=== PATIENT | female | born 2000 | race Two or more races ===

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

== ENCOUNTER 2021-06-27 16:41 | Outpatient (REF) | payer OTHER, SELFPAY ==
[2021-06-27 18:53] LABS: Influenza A PCR NEGATIVE (Negative); Influenza B PCR NEGATIVE (Negative); Resp Syncy Virus RNA Qual PCR NEGATIVE (Negative); SARS COV2 PCR INHOUSE NEGATIVE (Negative)
== END 2021-06-27 16:42 | disposition home or self-care (01) ==
LOC: HO.LAB 16:41
PROVIDERS: Visit Provider Pediatrics
DX: Z20.822 Contact with and (suspected) exposure to COVID-19 (principal)
CPT/HCPCS: 0241U; 36415

== ENCOUNTER → 2023-06-28 15:01 | Outpatient (BNVA) | payer OTHER, SELFPAY | PROVIDERS: PCP Physician Assistant; Visit Provider Physician Assistant Medical | DX: S40.871A Other superficial bite of right upper arm, initial encounter (principal); W50.3XXA Accidental bite by another person, initial encounter | CPT/HCPCS: 99203 ==

== ENCOUNTER 2023-10-29 11:40 | Outpatient (AMB) | payer OTHER, SELFPAY ==
--- NOTE | 2023-10-29 11:58 | AM.OFFWIN_ITS ---
Intake Vital Signs 10/29/23 12:03 Height 5 ft 3 in Weight 121 lb BMI 21.4 BP 120/76 Blood Pressure Location Rt brachial Position Sitting Pulse 90 Pulse Source Pulse Oximeter Pulse Oximetry (%) 98 Oxygen Delivery Method Room Air Intake Visit Reasons: EP Stomach pain/Throat currently Intake Note: Patient here for sore throat that has been present for a few days. pt would also like to get a blood preg test to see how far along she is-got off depo in July Patient Tobacco Use Status: Never used Tobacco Allergies No Known Allergies Allergy (Verified 10/29/23 12:03) Do you need a note to return to daycare/school/sports/work: No HPI HPI Comments History of Present Illness Details 23 y/o female patient who presents to [facility] with c/o URI symptoms for few days. She reports Runny nose, sneezing and nasal congestion. Denies fevers, chills, nausea or vomiting. Pt is but she does not know how far along. She has upcoming Appointment with hand inserter operator next week. Pt asking for Blood HCG to determine how far along in . Pt also c/o Abdominal cramping. [facility] Social History Patient Tobacco Use Status: Never used Tobacco Review of Systems Const All systems reviewed & are unremarkable except as noted in HPI and below Physical Exam Vital Signs: Last Vital Signs Pulse 90 10/29/23 12:03 BP 120/76 10/29/23 12:03 Pulse Ox 98 10/29/23 12:03 Oxygen Delivery Method Room Air 10/29/23 12:03 BMI result Body Mass Index 21.4 Const General: comfortable and no acute distress Orientation/consciousness: patient oriented x3 HEENT Head: Yes normocephalic Ears: external ears normal and TM abnormal with fluid behind the TM bilateral General nose exam: Abnormal mucous membranes and turbinates present boggy bilateral and erythematous bilateral Face and sinus: Yes sinuses nontender Mouth: moist mucous membranes Throat: Yes uvula midline and Yes postnasal drainage Resp Effort & Inspection: normal respiratory effort and able to speak in complete sentences Auscultation: clear to auscultation bilaterally, no crackles, no rales, no rhonchi and no wheezes Cardio Rate: regular rate Rhythm: regular rhythm Neuro General: patient oriented x3 Results AMB Rapid Strep AMB Rapid Strep Negative Last Edit by NATALYA Gant on 10/29/23 12:19 Assessment & Plan Assessment & Plan (1) Allergic rhinitis: Code(s): J30.9 - Allergic rhinitis, unspecified Qualifiers: Allergic rhinitis trigger: unspecified Allergic rhinitis seasonality: seasonal Qualified Code(s): J30.2 - Other seasonal allergic rhinitis Plan: - Take medications as directed. - F/U with [employer] as scheduled - Acetaminophen for pain relief Orders: Orders AMB Rapid Strep Screen Today Z13.9 - Encounter for screening, unspecified Medications: New cetirizine (Zyrtec) 10 mg PO DAILY PRN 30 tabs 1RF allergy symptoms J30.9 - Allergic rhinitis, unspecified fluticasone propionate 50 mcg/actuation (Flonase Allergy Relief) administer into each nostril 1 spray intranasal DAILY 16 grams 0RF J30.9 - Allergic rhinitis, unspecified Coding Level of Care Code Est Pt Level 3 (59699) Diagnoses Seasonal allergic rhinitis, unspecified trigger J30.2 Allergic rhinitis trigger: unspecified Allergic rhinitis seasonality: seasonal Time Spent (min) 15
[2023-10-29 12:03] VITALS: BP 120/76; PULSE 90; O2SAT 98; BMI 21.4
== END 2023-10-29 12:36 | disposition home or self-care (01) ==
PROVIDERS: PCP Physician Assistant; Visit Provider Nurse Practitioner Family
DX: J30.2 Other seasonal allergic rhinitis (principal); Z13.9 Encounter for screening, unspecified
CPT/HCPCS: 87880; 99213

== ENCOUNTER 2024-11-28 15:07 | Outpatient (REF) | payer OTHER, SELFPAY ==
[2024-11-29 11:14] LABS: Bacterial Vaginosis PCR POSITIVE (Negative); Candida Group PCR DETECTED (Not Detect); Candida glab krusei PCR NOT DETECTED (Not Detect); Trichomonas vaginalis PCR NOT DETECTED (Not Detect)
--- OUTSIDE RECORDS SUMMARY | 2024-11-29 11:47 | XMS_ITS | Encounter Summary ---
Author Organization [facility] Address [address] [place] [address] Phone Care Team Providers Care Merchandise Worker Name Role Phone Nerissa Diego MD Primary Care Provider [phone] Encounter Details Date Type Department Care Team (Late st Contact Info) Description 10/05/2012 Documentation [facility] [place] [address] [place], [place] [address] Family Medicine, Physician [address] [place], [place] [address] Social History Tobacco Use Types Packs/Day Years [...] on filedocumented in this encounter Care Teams Merchandise Worker Relationship Specialty Start Date End Date Nerissa Diego MD [address] [place] [address] PCP - General 03/19/17 09/17/22 documented as of this encounter
--- OUTSIDE RECORDS SUMMARY | 2024-11-29 11:47 | XMS_ITS | Encounter Summary ---
Author Organization [facility] Address [address] [place] [address] Phone Care Team Providers Care Charge Manager Name Role Phone Nerissa Diego MD Primary Care Provider [phone] Encounter Details Date Type Department Care Team (Late st Contact Info) Description 10/04/2012 Documentation [facility] [place] [address] [place], [place] [phone] Family Medicine, Physician [address] [place], [place] [address] Social History Tobacco Use Types Packs/Day Years [...] on filedocumented in this encounter Care Teams Charge Manager Relationship Specialty Start Date End Date Nerissa Diego MD [address] [place] [address] PCP - General 03/19/17 09/17/22 documented as of this encounter
--- OUTSIDE RECORDS SUMMARY | 2024-11-29 11:47 | XMS_ITS | Encounter Summary ---
Author Organization [facility] Address [address] [place] [address] Phone Care Team Providers Care Grain Receiver Name Role Phone Nerissa Diego MD Primary Care Provider [phone] Encounter Details Date Type Department Care Team (Late st Contact Info) Description 09/05/2014 Documentation [facility] Family Medicine [address] [place], [place] [phone] Family Medicine, Physician [address] [place], [place] [address] Social History Tobacco Use Types Packs/Day Years [...] on filedocumented in this encounter Care Teams Grain Receiver Relationship Specialty Start Date End Date Nerissa Diego MD [address] [place] [address] PCP - General 03/19/17 09/17/22 documented as of this encounter
--- OUTSIDE RECORDS SUMMARY | 2024-11-29 11:47 | XMS_ITS | Encounter Summary ---
Author Organization [facility] Address [address] [place] [address] Phone Care Team Providers Care Compounder Name Role Phone Nerissa Diego MD Primary Care Provider [phone] Encounter Details Date Type Department Care Team (Late st Contact Info) Description 10/04/2012 Documentation [facility] [place] [address] [place], [place] [id number] Family Medicine, Physician [address] [place], [place] [address] Social History Tobacco Use Types Packs/Day Years [...] on filedocumented in this encounter Care Teams Compounder Relationship Specialty Start Date End Date Nerissa Diego MD [address] [place] [address] PCP - General 03/19/17 09/17/22 documented as of this encounter
--- OUTSIDE RECORDS SUMMARY | 2024-11-29 11:47 | XMS_ITS | Clinical Summary ---
Author Organization [facility] Address [address] [place] [address] Phone Care Team Providers Care Stone And Plate Preparer Apprentice Name Role Phone Unavailable Primary Care Provider [...]
--- OUTSIDE RECORDS SUMMARY | 2024-11-29 11:47 | XMS_ITS | Clinical Summary ---
Author Organization [facility] [address] [facility] Address [address] [place] [address] Phone Care Team Providers Care Golf Player Assistant Name Role Phone Jovita Douglas NP Primary [...] Alexandre Galan CNM 05/23/2024 1. [place] site: [address] 2. Delivery site: [facility] 3. Mobile Mommas: NO 4. Dating criteria: 1st trimester ultrasound only 5. Blood type: Lab Results Component Value Date BLDTYPE O POSITIVE 12/07/2023 6. Genetic screening: Date: low-risk female; [id number] neg 6. GBS: Date: GBS IN URINE [...] on Tita Schultz and, CNM Complications:None,Febrile Delivery Location:[facility] ([facility]) Last Filed Vital Signs Vital [...] Most Recently Relevant to Health Maintenance Insurance [facility] Advance Directives * Full Code - Default [...] currently active code status orders. Care Teams Golf Player Assistant Relationship Specialty Start Date End Date Jovita Douglas NP [address] [place] [address] PCP - General 11/25/23
--- OUTSIDE RECORDS SUMMARY | 2024-11-29 11:47 | XMS_ITS | Encounter Summary ---
Author Organization [facility] Address [address] [place] [address] Phone Care Team Providers Care Social Worker Aide Name Role Phone Nerissa Diego MD Primary Care Provider [phone] Encounter Details Date Type Department Care Team (Late st Contact Info) Description 10/05/2012 Documentation [facility] [place] Family Medicine [address] [place], [place] [id number] Family Medicine, Physician [address], [place] [address] Social History Tobacco Use Types Packs/Day Years [...] on filedocumented in this encounter Care Teams Social Worker Aide Relationship Specialty Start Date End Date Nerissa Diego MD [address] [place] [address] PCP - General 03/19/17 09/17/22 documented as of this encounter
--- OUTSIDE RECORDS SUMMARY | 2024-11-29 11:47 | XMS_ITS | Encounter Summary ---
Author Organization [facility] Address [address] [place] [address] Phone Care Team Providers Care Race Relations Adviser Name Role Phone Nerissa Diego MD Primary Care Provider Encounter Details Date Type Department Care Team (Late st Contact Info) Description 10/05/2012 Documentation [facility] [place] Medicine [address] [place], [place] [phone] Family Medicine, Physician [address], [place] [address] Social History Tobacco Use Types Packs/Day Years [...] on filedocumented in this encounter Care Teams Race Relations Adviser Relationship Specialty Start Date End Date Nerissa Diego MD [address] [place] [address] PCP - General 03/19/17 09/17/22 documented as of this encounter
--- OUTSIDE RECORDS SUMMARY | 2024-11-29 11:47 | XMS_ITS | Encounter Summary ---
Author Organization [facility] Address [address] [place] [address] Phone Care Team Providers Care Stacking Machine Operator Name Role Phone Nerissa Diego MD Primary Care Provider [phone] Encounter Details Date Type Department Care Team (Late st Contact Info) Description 03/21/2014 Documentation [facility] [place] Medicine [address] [place], [place] [phone] Family Medicine, Physician [address], [place] [address] Social History Tobacco Use Types Packs/Day Years [...] on filedocumented in this encounter Care Teams Stacking Machine Operator Relationship Specialty Start Date End Date Nerissa Diego MD [address] [place] [address] PCP - General 03/19/17 09/17/22 documented as of this encounter
--- OUTSIDE RECORDS SUMMARY | 2024-11-29 11:47 | XMS_ITS | Encounter Summary ---
Author Organization [facility] Address [address] [place] [address] Phone Care Team Providers Care Batch And Furnace Operator Name Role Phone Nerissa Diego MD Primary Care Provider [phone] Encounter Details Date Type Department Care Team (Late st Contact Info) Description 04/20/2014 Documentation [facility] [place] [address] [place], [place] [phone] Family Medicine, Physician [address] [place], [place] [address] Social History Tobacco Use Types Packs/Day Years [...] on filedocumented in this encounter Care Teams Batch And Furnace Operator Relationship Specialty Start Date End Date Nerissa Diego MD [address] [place] [address] PCP - General 03/19/17 09/17/22 documented as of this encounter
--- OUTSIDE RECORDS SUMMARY | 2024-11-29 11:47 | XMS_ITS | Encounter Summary ---
Author Organization [facility] Address [address] [place] [address] Phone Care Team Providers Care Patent Searcher Name Role Phone Nerissa Diego MD Primary Care Provider [phone] Encounter Details Date Type Department Care Team (Late st Contact Info) Description 04/20/2014 Documentation [facility] [place] [address] [place], [place] [phone] Family Medicine, Physician [address], [place] [address] Social History Tobacco Use Types Packs/Day Years [...] on filedocumented in this encounter Care Teams Patent Searcher Relationship Specialty Start Date End Date Nerissa Diego MD [address] [place] [address] PCP - General 03/19/17 09/17/22 documented as of this encounter
--- OUTSIDE RECORDS SUMMARY | 2024-11-29 11:47 | XMS_ITS | Encounter Summary ---
Author Organization [facility] Address [address] [place] [address] Phone Care Team Providers Care Tile Roofer Name Role Phone Nerissa Diego MD Primary Care Provider [phone] Encounter Details Date Type Department Care Team (Late st Contact Info) Description 10/05/2012 Documentation [facility] [place] [address] [place], [place] [phone] Family Medicine, Physician [address] [place], [place] [address] Social History Tobacco Use Types Packs/Day Years [...] on filedocumented in this encounter Care Teams Tile Roofer Relationship Specialty Start Date End Date Nerissa Diego MD [address] [place] [address] PCP - General 03/19/17 09/17/22 documented as of this encounter
--- OUTSIDE RECORDS SUMMARY | 2024-11-29 11:47 | XMS_ITS | Encounter Summary ---
Author Organization [facility] Address [address] [place] [address] Phone Care Team Providers Care Product Advisor Name Role Phone Nerissa Diego MD Primary Care Provider [phone] Encounter Details Date Type Department Care Team (Late st Contact Info) Description 03/25/2017 Conversion Encounter [facility] [place] [address] [place] [address] Social History Tobacco Use Types Packs/Day Years [...] filedocumented in this encounter Care Teams Product Advisor Relationship Specialty Start Date End Date Nerissa Diego MD [address] [place] [address] PCP - General 03/19/17 09/17/22 documented as of this encounter
--- OUTSIDE RECORDS SUMMARY | 2024-11-29 11:47 | XMS_ITS | Encounter Summary ---
Author Organization [facility] Address [address] [place] [address] Phone Care Team Providers Care Claim Trainee Name Role Phone Nerissa Diego MD Primary Care Provider Encounter Details Date Type Department Care Team (Late st Contact Info) Description 10/04/2012 Documentation [facility] [place] [address] [place], [place] [phone] Family Medicine, Physician [address] [place], [place] [address] Social History Tobacco Use Types Packs/Day Years [...] on filedocumented in this encounter Care Teams Claim Trainee Relationship Specialty Start Date End Date Nerissa Diego MD [address] [place] [address] PCP - General 03/19/17 09/17/22 documented as of this encounter
--- OUTSIDE RECORDS SUMMARY | 2024-11-29 11:47 | XMS_ITS | Encounter Summary ---
Author Organization [facility] Address [address] [place] [address] Phone Care Team Providers Care Hazardous Materials Tanker Driver Name Role Phone Nerissa Diego MD Primary Care Provider [phone] Encounter Details Date Type Department Care Team (Late st Contact Info) Description 10/05/2012 Documentation [facility] [place] Medicine [address] [place], [place] [phone] Family Medicine, Physician [address], [place] [address] Social History Tobacco Use Types Packs/Day Years [...] on filedocumented in this encounter Care Teams Hazardous Materials Tanker Driver Relationship Specialty Start Date End Date Nerissa Diego MD [address] [place] [address] PCP - General 03/19/17 09/17/22 documented as of this encounter
--- OUTSIDE RECORDS SUMMARY | 2024-11-29 11:47 | XMS_ITS | Encounter Summary ---
Author Organization [facility] Address [address] [place] [address] Phone Care Team Providers Care Account Administrator Name Role Phone Nerissa Diego MD Primary Care Provider Encounter Details Date Type Department Care Team (Late st Contact Info) Description 10/05/2012 Documentation [facility] Family Medicine [address] [place], [place] [phone] Family Medicine, Physician [address], [place] [address] Social History Tobacco Use Types Packs/Day Years [...] on filedocumented in this encounter Care Teams Account Administrator Relationship Specialty Start Date End Date Nerissa Diego MD [address] [place] [address] PCP - General 03/19/17 09/17/22 documented as of this encounter
== END 2024-11-28 15:08 | disposition home or self-care (01) ==
LOC: HO.LNP 15:07
PROVIDERS: PCP Physician Assistant; Visit Provider Physician Assistant
DX: N76.0 Acute vaginitis (principal)
CPT/HCPCS: 81003; 81515; 99212

== ENCOUNTER 2024-11-28 15:07 | Outpatient (AMB) | payer OTHER, SELFPAY ==
--- NOTE | 2024-11-28 15:31 | MHC.OFFWIV ---
Intake Vital Signs 11/28/24 15:48 Weight 118 lb 4 oz BP 110/68 Blood Pressure Location Rt brachial Position Sitting Pulse 76 Pulse Source Pulse Oximeter Pulse Oximetry (%) 94 Oxygen Delivery Method Room Air Intake Visit Reasons: EP-?uti Intake Note: Patient here for discharge and itching that started about 3-4 days ago. mentioned she just started a control and also recently had a baby. Patient Tobacco Use Status: Never used Tobacco Allergies No Known Allergies Allergy (Verified 10/29/23 12:03) HPI HPI Comments History of Present Illness Details This is a 24-year-old female, 5 months , currently maintained on Depo-Provera presenting for evaluation of vaginal itching with a white discharge that she first noticed yesterday. Patient denies having any new sexual partners, fevers, chills, abdominal pain, dysuria, urinary frequency or hematuria. Patient has not used any medication for treatment of her discomfort. [facility] Social History Patient Tobacco Use Status: Never used Tobacco Review of Systems Const All systems reviewed & are unremarkable except as noted in HPI and below Reports as per HPI, Denies chills, Denies fatigue and Denies fever(s) Eyes Reports no additional complaints ENT Reports no additional complaints Card Reports no additional complaints Resp Reports no additional complaints GI Reports no additional complaints Denies genital pruritis, Denies genital lesions, Denies dysuria, Denies pelvic pain, Denies urinary urgency, Reports vaginal discharge, Denies vaginal dryness, Denies vaginal odor and Reports vaginal pruritus Musc Reports no additional complaints Skin/Breast Reports system reviewed and no additional complaints, except as documented Neuro Reports no additional complaints Psych Reports no additional complaints Endo Reports no additional complaints and Denies fatigue Jens/Lymph Reports no additional complaints Aller/Immun Reports no additional complaints Physical Exam Vital Signs: Last Vital Signs Pulse 76 11/28/24 15:48 BP 110/68 11/28/24 15:48 Pulse Ox 94 11/28/24 15:48 Oxygen Delivery Method Room Air 11/28/24 15:48 Const General: cooperative, healthy appearing, comfortable, no acute distress, well developed, alert, awake and Physically active; No acute distress Nutritional Appearance: average body habitus Orientation/consciousness: patient oriented x3 Limitations: no limitations GI Palpation (GI): Soft to palpation, nontender and no guarding General: Yes bladder normal to palpation and Yes no CVA tenderness External Female Exam: normal external appearance, normal appearance of the urethra, No erythema, No externally tender, No external swelling, No lesion, No urethral discharge, No lesion, No tender and other (no vaginal discharge noted at vaginal introitus, no evidence of trauma) Bimanual exam- vagina & uterus: bladder normal to palpation Back/Spine/Pelvis Back: no CVA tenderness Skin General skin exam: no rashes or lesions noted Neuro General: patient oriented x3 Psych Appearance: grossly normal Mental Status: mental status grossly normal Insight: Good insight present (Psych) Judgement: Good judgement present (Psych) Results AMB Urinalysis, Automated UA Leukoctes 0 Romel/uL Last Edit by Elidia Jamison [facility] on 11/28/24 15:32 UA Nitrite Negative Last Edit by Elidia Jamison [facility] on 11/28/24 15:32 UA Urobilinogen 0.2 mg/dL Last Edit by Elidia Jamison [facility] on 11/28/24 15:32 UA Protein 0 mg/dL Last Edit by Elidia Jamison [facility] on 11/28/24 15:32 UA pH 6.0 Last Edit by Elidia Jamison [facility] on 11/28/24 15:32 UA Blood 0 Palmer/uL Last Edit by Elidia Jamison [facility] on 11/28/24 15:32 UA Specific Matthews 1.030 Last Edit by Elidia Jamison [facility] on 11/28/24 15:32 UA Ketone Negative Last Edit by Elidia Jamison [facility] on 11/28/24 15:32 UA Bilirubin 0 mg/dL Last Edit by Elidia Jamison [facility] on 11/28/24 15:32 UA Glucose 0 mg/dL Last Edit by Elidia Jamison [facility] on 11/28/24 15:32 Results Reviewed Results Reviewed: Laboratory Last Values Urine pH (Auto) 6.0 11/28/24 15:31 Specific Matthews (Auto) 1.030 11/28/24 15:31 Urine Protein (Auto) 0 mg/dL 11/28/24 15:31 Glucose (UA)(Auto) 0 mg/dL 11/28/24 15:31 Urine Ketones (Auto) Negative 11/28/24 15:31 Urine Blood (Auto) 0 Palmer/uL 11/28/24 15:31 Urine Nitrite (Auto) Negative 11/28/24 15:31 Urine Bilirubin (Auto) 0 mg/dL 11/28/24 15:31 Urine Urobilinogen (Auto) 0.2 mg/dL 11/28/24 15:31 Leukocyte Esterase (Auto) 0 Romel/uL 11/28/24 15:31 Assessment & Plan Assessment & Plan (1) Vaginitis: Comment: There is no evidence of an acute urinary tract infection on urinalysis. A bacterial vaginosis panel is obtained and results are pending at this time. Code(s): N76.0 - Acute vaginitis Qualifiers: Chronicity: acute Qualified Code(s): N76.0 - Acute vaginitis Plan: No prescription offered at this time, results are pending and patient will be contacted with any abnormal results. Orders: Orders AMB Urinalysis Automated Today Z13.9 - Encounter for screening, unspecified Bacterial Vaginosis Panel Today N76.0 - Acute vaginitis Coding Level of Care Code Est Pt Level 3 (03180) Diagnoses Acute vaginitis N76.0 Chronicity: acute Time Spent (min) 25
[2024-11-28 15:48] VITALS: BP 110/68; PULSE 76; O2SAT 94
--- OUTSIDE RECORDS SUMMARY | 2024-11-28 18:03 | XMS_ITS | Clinical Summary ---
Author Organization [facility] Address [address] [place] [address] Phone Care Team Providers Care Stage Set Designer Name Role Phone Unavailable Primary Care Provider Unavailabl e Immunizations Immunization Administration Dates Next Due DTaP 11/24/2006 DTaP 5 04/30/2004, 3,07/25/2002, 002 Hep A, ped/adol 04/19/2014 Hep B, ped/adol 04/19/2014,06/11/2003,2001 Hib (HbOC) 04/30/2004,06/11/2003 Hib (PRP-T) 07/25/2002,02/23/2002 IPV 11/24/2006,07/25/2002,02/23/2002 MMR 11/24/2006,04/30/2004 Meningococcal Conj (Menactra) MCV4P 04/19/2014 Pneumococcal Conjugate 06/11/2003,07/25/2002, Tdap 04/19/2014 Varicella 11/24/2006,04/30/2004 Family History Relation Name Status Comments Father Alive Father: Lazy Ey e Mother Alive Mother: Thyroid disease, asthma, fibromyalgia Sister Alive Sister: Asthma, ADD, Asthma Social History Tobacco Use Types Packs/Day Years Used Date Smoking Tobacco: Never Assessed Comments Unknown Sex and Gender Information Value Date Recorded Sex Assigned at Not on file Legal Sex Female 4:44 PM EDT Gender Identity Not on file Sexual Orientation Not on file Last Filed Vital Signs Vital Sign Reading Time Taken Comments Blood Pressure 101/69 04/19/2014 12:00 AM EDT Pulse 72 04/19/2014 12:00 AM EDT Temperature 36.4 ??C (97.6 ??F) 10/27/2012 12:00 AM E DT Respiratory Rate - - Oxygen Saturation - - Inhaled Oxygen Concentration - - Weight 48.1 kg (106 lb) 04/19/2014 12:00 AM EDT Height 156.8 cm (5' 1.75 ) 04/19/2014 12:00 AM E DT Body Mass Index 19.54 04/19/2014 12:00 AM EDT Plan of Treatment Health Maintenance Due Date Last Done Comments Hepatitis A Vaccines (2 of 2 - 2-dose series) 10/17/2014 04/19/2014 HPV Vaccines (1 - 3-dose series) 2016 Men B Vaccine (1 of 2 - Standard) 2017 Influenza Vaccines (#1) 2024 COVID-19 Vaccine (2023- season) 2024 DTaP,Tdap,and Td Vaccines (7 - Td or Tdap) 04/19/2024 04/19/2014, 11/24/2006, 04/30/2004, Additional history exists Pneumococcal Vaccine Completed 06/11/2003, 07/25/2002, 02/23/2002 HIB Vaccines Completed 04/30/2004, 10/2002, 07/25/2002, Additional history exists IPV Vaccines Completed 11/24/2006, 07/09, 02/23/2002 MMR Vaccines Completed 11/24/2006, 04/30/2004 Varicella Vaccines Completed 11/24/2006, 04/30/2004 Hepatitis B Vaccines Completed 04/19/2014, 06/11/2003, 2001 Meningococcal Vaccine Aged Out 04/19/2014 No armin raudel eligible based on patient's age to complete this topic
--- OUTSIDE RECORDS SUMMARY | 2024-11-28 18:03 | XMS_ITS | Encounter Summary ---
Author Organization [facility] Address [address] [place] [address] Phone Care Team Providers Care Car Sales Representative Name Role Phone Nerissa Diego MD Primary Care Provider [phone] Encounter Details Date Type Department Care Team (Late st Contact Info) Description 04/20/2014 Documentation [facility] [place] Family Medicine [address] [place], [place] [id number] Family Medicine, Physician [address], [place] [address] Social History Tobacco Use Types Packs/Day Years Used Date Smoking Tobacco: Never Assessed Comments Unknown Sex and Gender Information Value Date Recorded Sex Assigned at Not on file Legal Sex Female 4:44 PM EDT Gender Identity Not on file Sexual Orientation Not on file documented as of this encounter Plan of Treatment Not on file documented as of this encounter Visit Diagnoses Not on filedocumented in this encounter Care Teams Car Sales Representative Relationship Specialty Start Date End Date Nerissa Diego MD [address] [place] [address] PCP - General 03/19/17 09/17/22 documented as of this encounter
--- OUTSIDE RECORDS SUMMARY | 2024-11-28 18:03 | XMS_ITS | Encounter Summary ---
Author Organization [facility] Address [address] [place] [address] Phone Care Team Providers Care Animal Control Specialist Name Role Phone Nerissa Diego MD Primary Care Provider [phone] Encounter Details Date Type Department Care Team (Late st Contact Info) Description 10/05/2012 Documentation [facility] [place] Family Medicine [address] [place], [place] [id number] Family Medicine, Physician [address], [place] [address] Social History Tobacco Use Types Packs/Day Years [...] on filedocumented in this encounter Care Teams Animal Control Specialist Relationship Specialty Start Date End Date Nerissa Diego MD [address] [place] [address] PCP - General 03/19/17 09/17/22 documented as of this encounter
--- OUTSIDE RECORDS SUMMARY | 2024-11-28 18:03 | XMS_ITS | Encounter Summary ---
Author Organization [facility] Address [address] [place] [address] Phone Care Team Providers Care Product Info Specialist Name Role Phone Nerissa Diego MD Primary Care Provider [phone] Encounter Details Date Type Department Care Team (Late st Contact Info) Description 10/04/2012 Documentation [facility] [place] [address] [place], [place] [phone] Family Medicine, Physician [address], [place] [address] Social History Tobacco Use Types Packs/Day Years [...] on filedocumented in this encounter Care Teams Product Info Specialist Relationship Specialty Start Date End Date Nerissa Diego MD [address] [place] [address] PCP - General 03/19/17 09/17/22 documented as of this encounter
--- OUTSIDE RECORDS SUMMARY | 2024-11-28 18:03 | XMS_ITS | Encounter Summary ---
Author Organization [facility] Address [address] [place] [address] Phone Care Team Providers Care Occupational Therapist Assistant Name Role Phone Nerissa Diego MD Primary Care Provider [phone] Encounter Details Date Type Department Care Team (Late st Contact Info) Description 10/05/2012 [place] [facility] [place] [address] [place], [place] [phone] Family Medicine, Physician [address], [place] [address] Social History Tobacco Use Types Packs/Day Years [...] on filedocumented in this encounter Care Teams Occupational Therapist Assistant Relationship Specialty Start Date End Date Nerissa Diego MD [address] [place] [address] PCP - General 03/19/17 09/17/22 documented as of this encounter
--- OUTSIDE RECORDS SUMMARY | 2024-11-28 18:03 | XMS_ITS | Encounter Summary ---
Author Organization [facility] Address [address] [place] [address] Phone Care Team Providers Care Bushing And Broach Operator Name Role Phone Nerissa Diego MD Primary Care Provider [phone] Encounter Details Date Type Department Care Team (Late st Contact Info) Description 10/05/2012 Documentation [facility] [place] Family Medicine [address] [place], [place] [phone] Family Medicine, Physician [address], [place] [address] Social History Tobacco Use Types Packs/Day Years [...] on filedocumented in this encounter Care Teams Bushing And Broach Operator Relationship Specialty Start Date End Date Nerissa Diego MD [address] [place] [address] PCP - General 03/19/17 09/17/22 documented as of this encounter
--- OUTSIDE RECORDS SUMMARY | 2024-11-28 18:03 | XMS_ITS | Encounter Summary ---
Author Organization [facility] Address [address] [place] [address] Phone Care Team Providers Care Ceramic Tile Mechanic Name Role Phone Nerissa Diego MD Primary Care Provider [phone] Encounter Details Date Type Department Care Team (Late st Contact Info) Description 04/20/2014 [place] [facility] [place] [address] [place], [place] [phone] Family Medicine, Physician [address], [place] [address] Social History Tobacco Use Types Packs/Day Years [...] on filedocumented in this encounter Care Teams Ceramic Tile Mechanic Relationship Specialty Start Date End Date Nerissa Diego MD [address] [place] [address] PCP - General 03/19/17 09/17/22 documented as of this encounter
--- OUTSIDE RECORDS SUMMARY | 2024-11-28 18:03 | XMS_ITS | Encounter Summary ---
Author Organization [facility] Address [address] [place] [address] Phone Care Team Providers Care Coke Crane Operator Name Role Phone Nerissa Diego MD Primary Care Provider [phone] Encounter Details Date Type Department Care Team (Late st Contact Info) Description 10/04/2012 Documentation [facility] [place] Family Medicine [address] [place], [place] [phone] Family Medicine, Physician [address], [place] [address] Social History Tobacco Use Types Packs/Day Years [...] on filedocumented in this encounter Care Teams Coke Crane Operator Relationship Specialty Start Date End Date Nerissa Diego MD [address] [place] [address] PCP - General 03/19/17 09/17/22 documented as of this encounter
--- OUTSIDE RECORDS SUMMARY | 2024-11-28 18:03 | XMS_ITS | Encounter Summary ---
Author Organization [facility] Address [address] [place] [address] Phone Care Team Providers Care Pictures Editor Name Role Phone Nerissa Diego MD Primary Care Provider Encounter Details Date Type Department Care Team (Late st Contact Info) Description 10/05/2012 Documentation [facility] Family Medicine [address] [place], [place] [phone] Family Medicine, Physician [address], [place] [address] Social History Tobacco Use Types Packs/Day Years [...] on filedocumented in this encounter Care Teams Pictures Editor Relationship Specialty Start Date End Date Nerissa Diego MD [address] [place] [address] PCP - General 03/19/17 09/17/22 documented as of this encounter
--- OUTSIDE RECORDS SUMMARY | 2024-11-28 18:03 | XMS_ITS | Encounter Summary ---
Author Organization [facility] Address [address] [place] [address] Phone Care Team Providers Care Signal Operator Name Role Phone Nerissa Diego MD Primary Care Provider [phone] Encounter Details Date Type Department Care Team (Late st Contact Info) Description 03/21/2014 Documentation [facility] [place] Family Medicine [address] [place], [place] [phone] Family Medicine, Physician [address], [place] [address] Social History Tobacco Use Types Packs/Day Years [...] on filedocumented in this encounter Care Teams Signal Operator Relationship Specialty Start Date End Date Nerissa Diego MD [address] [place] [address] PCP - General 03/19/17 09/17/22 documented as of this encounter
--- OUTSIDE RECORDS SUMMARY | 2024-11-28 18:03 | XMS_ITS | Encounter Summary ---
Author Organization [facility] Address [address] [place] [address] Phone Care Team Providers Care Chemistry Quality Control Analyst Name Role Phone Nerissa Diego MD Primary Care Provider [phone] Encounter Details Date Type Department Care Team (Late st Contact Info) Description 10/04/[address] [facility] [place] Family Medicine [address] [place], [place] [phone] Family Medicine, Physician [address] [place], [place] [address] Social History Tobacco Use Types Packs/Day Years [...] on filedocumented in this encounter Care Teams Chemistry Quality Control Analyst Relationship Specialty Start Date End Date Nerissa Diego MD [address] [place] [address] PCP - General 03/19/17 09/17/22 documented as of this encounter
--- OUTSIDE RECORDS SUMMARY | 2024-11-28 18:03 | XMS_ITS | Encounter Summary ---
Author Organization [facility] Address [address] [place] [address] Phone Care Team Providers Care Baggage Porter Head Name Role Phone Nerissa Diego MD Primary Care Provider [phone] Encounter Details Date Type Department Care Team (Late st Contact Info) Description 10/05/2012 [place] [facility] [place] [address] [place], [place] [phone] Family Medicine, Physician [address], [place] [address] Social History Tobacco Use Types Packs/Day Years [...] on filedocumented in this encounter Care Teams Baggage Porter Head Relationship Specialty Start Date End Date Nerissa Diego MD [address] [place] [address] PCP - General 03/19/17 09/17/22 documented as of this encounter
--- OUTSIDE RECORDS SUMMARY | 2024-11-28 18:03 | XMS_ITS | Encounter Summary ---
Author Organization [facility] Address [address] [place] [address] Phone Care Team Providers Care Industrial Design Intern Name Role Phone Nerissa Diego MD Primary Care Provider [phone] Encounter Details Date Type Department Care Team (Late st Contact Info) Description 09/05/2014 Documentation [facility] [place] Family Medicine [address] [place], [place] [phone] Family Medicine, Physician [address], [place] [address] Social History Tobacco Use Types Packs/Day Years [...] on filedocumented in this encounter Care Teams Industrial Design Intern Relationship Specialty Start Date End Date Nerissa Diego MD [address] [place] [address] PCP - General 03/19/17 09/17/22 documented as of this encounter
--- OUTSIDE RECORDS SUMMARY | 2024-11-28 18:03 | XMS_ITS | Encounter Summary ---
Author Organization [facility] Address [address] [place] [address] Phone Care Team Providers Care Mycologist Name Role Phone Nerissa Diego MD Primary Care Provider [phone] Encounter Details Date Type Department Care Team (Late st Contact Info) Description 10/05/2012 Documentation [facility] [place] Family Medicine [address] [place], [place] [phone] Family Medicine, Physician [address], [place] [address] Social History Tobacco Use Types Packs/Day Years [...] on filedocumented in this encounter Care Teams Mycologist Relationship Specialty Start Date End Date Nerissa Diego MD [address] [place] [address] PCP - General 03/19/17 09/17/22 documented as of this encounter
--- OUTSIDE RECORDS SUMMARY | 2024-11-28 18:03 | XMS_ITS | Clinical Summary ---
Author Organization [facility] [address] [facility] Address [address] [place] [address] Phone Care Team Providers Care Service Dispatcher Name Role Phone Jovita Douglas NP Primary Care Provider [phone] Allergies No known active allergies Medications medroxyPROGESTE Ludwin (Depo-Provera) 150 mg/mL injection Inject 1 mL (150 mg total) into the shoulder, thigh, or buttocks 1 (one) time for 1 dose. 1 mL 4 08/18/2024 Active Active Problems Problem Noted Date Diagnosed Date Anemia affecting in third trimester Overview (08/18/2024): Hgb 9.1 PP, will restart Fe supplements Maternal varicella, non-immune 12/08/2023 Overview (05/18/2024): Offer vaccine PP Resolved Problems Problem Noted Date Diagnosed Date Resolved Date 06/29/2024 08/18/2024 Overview (06/29/2024): Edited: Alexandre Galan CNM 05/23/2024 1. [facility] site: [address] 2. Delivery site: [facility] 3. Mobile Mommas: NO 4. Dating criteria: 1st trimester ultrasound only 5. Blood type: Lab Results Component Value Date BLDTYPE O POSITIVE 12/07/2023 6. Genetic screening: Date: low-risk female; [id number] neg 6. GBS: Date: GBS IN URINE 7. FOB name: Fredi 8. Plans A. Epidural or other pain management - B. Labor support identified - C. Tdap - Date: 03/23/2024 Flu - Date: D. Breast or Bottle feed: breastfeed E. Baby's name -Puja Ryan Circumcision - 9. Hospital Course: Uterine contractions 06/27/2024 024 Full-term premature rupture of membranes with onset of labor within 24 hours of rupture 06/27/2024 06/30/2024 Premature rupture of membran es (PROM), onset of labor within 24 hours, antepartum 06/27/2024 Encounter for supervision of normal first in third trimester 06/14/2024 08/18/2024 Group B streptococcal bacteriuria 12/10/2023 06/30/2024 Overview (06/16/2024): <10K, IP prophylaxis 01/07/2024 culture repeated due to urinary urgency, now 50-99K, will tx with amoxicillin 06/14/2024 urine culture <10K GBS, pt asx Immunizations Name Administration Dates Next Due Tdap Tetanus diptheria acell ular pertussis (Boostrix; Adacel) 7yo and older 03/23/2024 Surgical History Surgery Date Site/Laterality Comments OTHER SURGICAL HISTORY PROCEDURE: DENIES PREVIOUS SURGERY Medical History Medical History Date Comments Patient denies medical problems DX:Patient denies medical problems Anemia Family History Medical History Relation Name Comments No Known Problems Father No Known Problems Half-Brother 1 No Known Problems Half-Brother 2 No Known Problems Half-Brother 3 No Known Problems Half-Sister 1 No Known Problems Half-Sister 2 No Known Problems Half-Sister 3 No Known Problems Half-Sister 4 Other: HIV Maternal Grandfather No Known Problems Maternal Grandmother Arthritis Mother Other: fibromyalgia Mother Relation Name Status Comments Father Alive Half-Brother 1 Alive Half-Brother 2 Alive Half-Brother 3 Alive Half-Sister 1 Alive Half-Sister 2 Alive Half-Sister 3 Alive Half-Sister 4 Alive Maternal Grandfather Maternal Grandmother Alive Mother Alive Paternal Grandfather Alive Paternal Grandmother Social History Tobacco Use Types Packs/Day Years Used Date Smoking Tobacco: Never Smokeless Tobacco: Never Tobacco Cessation:Counseling Given: Not Answered Alcohol Use Standard Drinks/Week Comments Never 0 (1 standard drink = 0.6 oz pur e alcohol) Comments No Sex and Gender Information Value Date Recorded Sex Assigned at Not on file Legal Sex Female 11:02 AM EDT Gender Identity Not on file Sexual Orientation Not on file Obstetrics History Para Term AB IAB SAB Ectopic Multiple Livin g Live Births 2 1 1 1 1 0 1 1 Date Outcome GA Total Labor Labor/2nd/3rd Weight Sex Type Anes PTL Selin A1 A5 Name Clin IAB 2023 Term 40w 6d 4h 27m 3h 58m/0h 25m/0h 04m 3260 g (115 oz) F Vag-S pont Epidur al N Livin g 6 9 Puja Ochoa on Tita Schultz and, CNM Complications:None,Febrile Delivery Location:[facility] Last Filed Vital Signs Vital Sign Reading Time Taken Comments Blood Pressure 105/61 08/18/2024 1:33 PM EST Pulse 67 08/18/2024 1:33 PM EST Temperature 36.7 ??C (98.1 ??F) 06/30/2024 7:13 AM ES T Respiratory Rate 14 08/18/2024 1:33 PM EST Oxygen Saturation 100% 06/29/2024 11: 00 PM EST Inhaled Oxygen Concentration - - Weight 61.1 kg (134 lb 12.8 oz) 08/18/2024 1:33 PM EST Height 160 cm (5' 3 ) 06/27/2024 7:31 PM EST Body Mass Index 23.88 06/27/2024 7:31 PM EST Plan of Treatment Health Maintenance Due Date Last Done Comments Hepatitis A Vaccines (2 of 2 - 2-dose series) 10/17/2014 04/19/2014 Meningococcal B Vaccine (1 of 2 - Standard) 2017 HPV Vaccines (3 - 3-dose series) 11/30/2018 09/07/2018, 03/30/2017 Cervical Cancer Screening: Pap Smear 2022 Depression Screening 03/03/2024 Social Influencers of Health Screening 03/03/2024 COVID-19 Vaccine ( season) 2024 Influenza Vaccine (Season Ended) 2025 08/22/2018 Gonorrhea/Chlamydia Screening 05/09/2025 05/09/2024 DTaP,Tdap,and Td Vaccines (9 - Td or Tdap) 03/23/2034 03/23/2024, 08/13/2016, 04/19/2014, Additional history exists Pneumococcal Vaccine: Pediatrics (0 to 5 Years) and At-Risk Patients (6 to 64 Years) Completed 06/11/2003, 07/25/2002, 02/23/2002 HIB Vaccines Completed 04/30/2004, 10/2002, 07/25/2002, Additional history exists IPV Vaccines Completed 11/24/2006, 07/09, 02/23/2002 MMR Vaccines Completed 11/24/2006, 04/30/2004 Varicella Vaccines Completed 11/24/2006, 04/30/2004 Hepatitis B Vaccines Completed 04/19/2014, 06/11/2003, 2001 Meningococcal ACWY Vaccine Completed 08/22, 08/13/2016, 04/19/2014 HIV Screening Completed 12/07/2023 Hepatitis C Screening Completed 12/07/2023 RSV Immunization Patients Under 20 months Aged Out No longer eligible based on patient's age to complete this topic Procedures Procedure Name Priority Date/Time Associated Diagnosis Comments GONORRHEA/CHLAMYDIA SCRREENING Routine 05/09/2024 HEPATITIS C SCREENING Routine 12/07/2023 from Last 3 Months or Most Recently Relevant to Health Maintenance Results * Gonorrhea/Chlamydia Screening (05/09/2024) Gonorrhea/Chla mydia Screening abstracted Historical Provider HEALTH MAINTENANCE Final Result * Hepatitis C Screening (12/07/2023) Hepatitis C Screening abstracted us Historical Provider HEALTH MAINTENANCE Final Result from Last 3 Months or Most Recently Relevant to Health Maintenance Insurance [facility] Advance Directives * Full Code - Default (Latest Code Status on File) Date Activated Date Inactivated Comments 06/28/2024 1:12 AM 06/30/2024 5:59 PM This is or cecilia is used when code status has not been discussed with the patient, or code status is otherwise unknown/unconfirmed To update the patient's code status, place a code status order. Do not modify or discontinue any currently active code status orders. * Full Code - Confirmed Date Activated Date Inactivated Comments 06/27/2024 8:09 PM 06/28/2024 1:12 AM This code status was ascertained in the following way: Code status discussion: discussion with patient To update the patient's code status, place a code status order. Do not modify or discontinue any currently active code status orders. * Full Code - Default Date Activated Date Inactivated Comments 06/27/2024 7:18 AM 06/27/2024 11:07 AM This is o rder is used when code status has not been discussed with the patient, or code status is otherwise unknown/unconfirmed To update the patient's code status, place a code status order. Do not modify or discontinue any currently active code status orders. Care Teams Service Dispatcher Relationship Specialty Start Date End Date Jovita Douglas NP [address] [place] [address] PCP - General 11/25/23
--- OUTSIDE RECORDS SUMMARY | 2024-11-28 18:03 | XMS_ITS | Encounter Summary ---
Author Organization [facility] Address [address] [place] [address] Phone Care Team Providers Care Credit Collections Analyst Name Role Phone Nerissa Diego MD Primary Care Provider [phone] Encounter Details Date Type Department Care Team (Late st Contact Info) Description 03/25/2017 Conversion Encounter [facility] [address] [place] [address] Social History Tobacco Use Types Packs/Day Years [...] on filedocumented in this encounter Care Teams Credit Collections Analyst Relationship Specialty Start Date End Date Nerissa Diego MD [address] [place] [address] PCP - General 03/19/17 09/17/22 documented as of this encounter
== END 2024-11-28 16:34 | disposition home or self-care (01) ==
PROVIDERS: PCP Physician Assistant; Visit Provider Physician Assistant
DX: N76.0 Acute vaginitis (principal); Z13.9 Encounter for screening, unspecified

== ENCOUNTER 2024-11-29 08:30 | Outpatient (REF) | payer OTHER, SELFPAY ==
--- OUTSIDE RECORDS SUMMARY | 2024-11-29 08:53 | XMS_ITS | Encounter Summary ---
Author Organization [facility] Address [address] [place] [address] Phone Care Team Providers Care Teacher Home Therapy Name Role Phone Nerissa Diego MD Primary Care Provider [phone] Encounter Details Date Type Department Care Team (Late st Contact Info) Description 04/20/2014 Documentation [facility] [place] [address] [place], [place] [id number] Family Medicine, Physician [address] [place], [place] [address] Social History Tobacco Use Types Packs/Day Years [...] on filedocumented in this encounter Care Teams Teacher Home Therapy Relationship Specialty Start Date End Date Nerissa Diego MD [address] [place] [address] PCP - General 03/19/17 09/17/22 documented as of this encounter
--- OUTSIDE RECORDS SUMMARY | 2024-11-29 08:53 | XMS_ITS | Encounter Summary ---
Author Organization [facility] Address [address] [place] [address] Phone Care Team Providers Care Ink Grinder Name Role Phone Nerissa Diego MD Primary Care Provider [phone] Encounter Details Date Type Department Care Team (Late st Contact Info) Description 09/05/2014 Documentation [facility] [place] Medicine [address] [place], [place] [id number] Family Medicine, Physician [address] [place], [place] [address] Social History Tobacco Use Types Packs/Day Years [...] on filedocumented in this encounter Care Teams Ink Grinder Relationship Specialty Start Date End Date Nerissa Diego MD [address] [place] [address] PCP - General 03/19/17 09/17/22 documented as of this encounter
--- OUTSIDE RECORDS SUMMARY | 2024-11-29 08:53 | XMS_ITS | Encounter Summary ---
Author Organization [facility] Address [address] [place] [address] Phone Care Team Providers Care Palliative Care Nurse Name Role Phone Nerissa Diego MD Primary Care Provider [phone] Encounter Details Date Type Department Care Team (Late st Contact Info) Description 04/20/2014 Documentation [facility] [place] [address] [place], [place] [phone] Family Medicine, Physician [address] [place], [place] [address] Social History Tobacco Use Types Packs/Day Years [...] on filedocumented in this encounter Care Teams Palliative Care Nurse Relationship Specialty Start Date End Date Nerissa Diego MD [address] [place] [address] PCP - General 03/19/17 09/17/22 documented as of this encounter
--- OUTSIDE RECORDS SUMMARY | 2024-11-29 08:53 | XMS_ITS | Encounter Summary ---
Author Organization [facility] Address [address] [place] [address] Phone Care Team Providers Care Setter Helper Name Role Phone Nerissa Diego MD Primary Care Provider [phone] Encounter Details Date Type Department Care Team (Late st Contact Info) Description 10/05/2012 Documentation [facility] [place] [address] [place], [place] [phone] Family Medicine, Physician [address], [place] [address] Social History Tobacco Use Types Packs/Day Years [...] on filedocumented in this encounter Care Teams Setter Helper Relationship Specialty Start Date End Date Nerissa Diego MD [address] [place] [address] PCP - General 03/19/17 09/17/22 documented as of this encounter
--- OUTSIDE RECORDS SUMMARY | 2024-11-29 08:53 | XMS_ITS | Clinical Summary ---
Author Organization [facility] Address [address] [place] [address] Phone Care Team Providers Care Regulatory Submissions Associate Name Role Phone Jovita Douglas NP Primary Care Provider Allergies No known active allergies Medications medroxyPROGESTE [...] Alexandre Galan CNM 05/23/2024 1. [facility] site: [address] 2. Delivery site: [facility] 3. Mobile Mommas: NO 4. Dating criteria: 1st trimester ultrasound only 5. Blood type: Lab Results Component Value Date BLDTYPE O POSITIVE 12/07/2023 6. Genetic screening: Date: low-risk female; [id number] neg 6. GBS: Date: GBS IN URINE [...] on Tita Schultz and, CNM Complications:None,Febrile Delivery Location:[facility] Last Filed Vital Signs Vital [...] Most Recently Relevant to Health Maintenance Insurance [facility] Advance Directives * Full Code - Default [...] currently active code status orders. Care Teams Regulatory Submissions Associate Relationship Specialty Start Date End Date Jovita Douglas NP [address] [place] [address] PCP - General 11/25/23
--- OUTSIDE RECORDS SUMMARY | 2024-11-29 08:53 | XMS_ITS | Encounter Summary ---
Author Organization [facility] Address [address] [place] [address] Phone Care Team Providers Care Repossessor Name Role Phone Nerissa Diego MD Primary Care Provider [phone] Encounter Details Date Type Department Care Team (Late st Contact Info) Description 03/21/2014 Documentation [facility] [place] [address] [place], [place] [phone] Family Medicine, Physician [address] [place], [place] [address] Social History Tobacco Use Types Packs/Day Years [...] on filedocumented in this encounter Care Teams Repossessor Relationship Specialty Start Date End Date Nerissa Diego MD [address] [place] [address] PCP - General 03/19/17 09/17/22 documented as of this encounter
--- OUTSIDE RECORDS SUMMARY | 2024-11-29 08:54 | XMS_ITS | Encounter Summary ---
Author Organization [facility] Address [address] [place] [address] Phone Care Team Providers Care Electronic Prepress Operator Name Role Phone Nerissa Diego MD Primary Care Provider [phone] Encounter Details Date Type Department Care Team (Late st Contact Info) Description 10/05/2012 Documentation [facility] [place] [address] [place], [place] [address] Family Medicine, Physician [address] [place], [place] [address] Social History Tobacco Use Types Packs/Day Years [...] on filedocumented in this encounter Care Teams Electronic Prepress Operator Relationship Specialty Start Date End Date Nerissa Diego MD [address] [place] [address] PCP - General 03/19/17 09/17/22 documented as of this encounter
--- OUTSIDE RECORDS SUMMARY | 2024-11-29 08:54 | XMS_ITS | Encounter Summary ---
Author Organization [facility] Address [address] [place] [address] Phone Care Team Providers Care Customer Assistance Associate Name Role Phone Nerissa Diego MD Primary Care Provider [phone] Encounter Details Date Type Department Care Team (Late st Contact Info) Description 03/25/2017 Conversion Encounter [facility] [place] [address] [place] [address] Social History Tobacco Use Types Packs/Day Years [...] on filedocumented in this encounter Care Teams Customer Assistance Associate Relationship Specialty Start Date End Date Nerissa Diego MD [address] [place] [address] PCP - General 03/19/17 09/17/22 documented as of this encounter
--- OUTSIDE RECORDS SUMMARY | 2024-11-29 08:54 | XMS_ITS | Clinical Summary ---
Author Organization [facility] Address [address] [place] [address] Phone Care Team Providers Care Clinical Ob Name Role Phone Unavailable Primary Care Provider [...]
--- OUTSIDE RECORDS SUMMARY | 2024-11-29 08:54 | XMS_ITS | Encounter Summary ---
Author Organization [facility] Address [address] [place] [address] Phone Care Team Providers Care Cnc Field Service Engineer Name Role Phone Nerissa Diego MD Primary Care Provider [phone] Encounter Details Date Type Department Care Team (Late st Contact Info) Description 10/04/2012 Documentation [facility] [place] [address] [place], [place] [phone] Family Medicine, Physician [address] [place], [place] [address]391 Social History Tobacco Use Types Packs/Day Years [...] on filedocumented in this encounter Care Teams Cnc Field Service Engineer Relationship Specialty Start Date End Date Nerissa Diego MD [address] [place] [address] PCP - General 03/19/17 09/17/22 documented as of this encounter
--- OUTSIDE RECORDS SUMMARY | 2024-11-29 08:54 | XMS_ITS | Encounter Summary ---
Author Organization [facility] Address [address] [place] [address] Phone Care Team Providers Care Wrap Turner Name Role Phone Nerissa Diego MD Primary Care Provider [phone] Encounter Details Date Type Department Care Team (Late st Contact Info) Description 10/05/2012 Documentation [facility] [place] Family Medicine [address] [place], [place] [phone] Family Medicine, Physician [address], [place] [address]851 Social History Tobacco Use Types Packs/Day Years [...] on filedocumented in this encounter Care Teams Wrap Turner Relationship Specialty Start Date End Date Nerissa Diego MD [address] [place] [address] PCP - General 03/19/17 09/17/22 documented as of this encounter
--- OUTSIDE RECORDS SUMMARY | 2024-11-29 08:54 | XMS_ITS | Encounter Summary ---
Author Organization [facility] Address [address] [place] [address] Phone Care Team Providers Care Boardmarker Name Role Phone Nerissa Diego MD Primary Care Provider [phone] Encounter Details Date Type Department Care Team (Late st Contact Info) Description 10/05/2012 Documentation [facility] [place] [address] [place], [place] [phone] Family Medicine, Physician [address] [place], [place] [address] Social History Tobacco Use Types Packs/Day Years [...] on filedocumented in this encounter Care Teams Boardmarker Relationship Specialty Start Date End Date Nerissa Diego MD [address] [place] [address] PCP - General 03/19/17 09/17/22 documented as of this encounter
--- OUTSIDE RECORDS SUMMARY | 2024-11-29 08:54 | XMS_ITS | Encounter Summary ---
Author Organization [facility] Address [address] [place] [address] Phone Care Team Providers Care Glassware Verifier Name Role Phone Nerissa Diego MD Primary Care Provider [phone] Encounter Details Date Type Department Care Team (Late st Contact Info) Description 10/04/2012 Documentation [facility] [place] Family [place] [address] [place], [place] [phone] Family Medicine, Physician [address] [place], [place] [address] Social History Tobacco Use Types Packs/Day Years [...] on filedocumented in this encounter Care Teams Glassware Verifier Relationship Specialty Start Date End Date Nerissa Diego MD [address] [place] [address] PCP - General 03/19/17 09/17/22 documented as of this encounter
--- OUTSIDE RECORDS SUMMARY | 2024-11-29 08:54 | XMS_ITS | Encounter Summary ---
Author Organization [facility] Address [address] [place] [address] Phone Care Team Providers Care Drum Handler Name Role Phone Nerissa Diego MD Primary Care Provider [phone] Encounter Details Date Type Department Care Team (Late st Contact Info) Description 10/04/2012 Documentation [facility] [place] [address] [place], [place] [phone] Family Medicine, Physician [address] [place], [place] [address] Social History Tobacco Use Types Packs/Day Years [...] on filedocumented in this encounter Care Teams Drum Handler Relationship Specialty Start Date End Date Nerissa Diego MD [address] [place] [address] PCP - General 03/19/17 09/17/22 documented as of this encounter
--- OUTSIDE RECORDS SUMMARY | 2024-11-29 08:54 | XMS_ITS | Encounter Summary ---
Author Organization [facility] Address [address] [place] [address] Phone Care Team Providers Care Hospice Educator Name Role Phone Nerissa Diego MD Primary Care Provider [phone] Encounter Details Date Type Department Care Team (Late st Contact Info) Description 10/05/2012 Documentation [facility] [place] Family Medicine [address] [place], [place] [phone] Family Medicine, Physician [address] [place], [place] [address] Social History Tobacco Use Types Packs/Day Years [...] on filedocumented in this encounter Care Teams Hospice Educator Relationship Specialty Start Date End Date Nerissa Diego MD [address] [place] [address] PCP - General 03/19/17 09/17/22 documented as of this encounter
--- OUTSIDE RECORDS SUMMARY | 2024-11-29 08:54 | XMS_ITS | Encounter Summary ---
Author Organization [facility] Address [address] [place] [address] Phone Care Team Providers Care Bullet Lubricant Mixer Name Role Phone Nerissa Diego MD Primary Care Provider [phone] Encounter Details Date Type Department Care Team (Late st Contact Info) Description 10/05/2012 [place]ation [facility] [place] [address] [place], [place] [phone] Family Medicine, Physician [address] [place], [place] [address] Social History Tobacco Use Types Packs/Day Years [...] on filedocumented in this encounter Care Teams Bullet Lubricant Mixer Relationship Specialty Start Date End Date Nerissa Diego MD [address] [place] [address] PCP - General 03/19/17 09/17/22 documented as of this encounter
== END 2024-11-29 08:31 | disposition home or self-care (01) ==
LOC: HO.LAB 08:30
PROVIDERS: Visit Provider Physician Assistant
DX: Z13.89 Encounter for screening for other disorder (principal)